=== PATIENT | male | born 1950 | race African-American/Black ===

== ENCOUNTER → 2019-12-07 | Outpatient (CLI) | payer MEDICARE ==
[2013-12-20 09:08] VITALS: BP 158/107
--- NOTE | 2019-12-07 10:00 | RAD ---
EXAM: Bilateral knees, standing view; cervical spine, 5 views. HISTORY: Pain. COMPARISON: 12/18/2018 FINDINGS: There are bilateral knees: A standing view both knees is obtained. There is severe right and moderate left medial compartment joint space narrowing with subchondral sclerosis. There is mild right greater than left medial compartment spurring. There is right greater than left genu varus. Cervical spine: 5 views of the cervical spine are obtained. There is mild anterolisthesis of C3 on C4 and C4 on C5. There is degenerative endplate remodeling and osteophytosis primarily at C5-C6 and C6-C7. There is multilevel facet arthropathy. No fracture is seen. IMPRESSION: 1. Multilevel degenerative change involving the cervical spine, primarily at C5-C6. 2. Severe right medial compartment and moderate left medial compartment osteoarthritis of both knees with associated right greater than left genu varus. Electronically signed by: Keira Zuniga MD (12/07/2019 9:57 AM) [id number]
== END ==
LOC: RAD 08:57
PROVIDERS: ATTEND Family Medicine
DX: M17.0 Bilateral primary osteoarthritis of knee (principal); M47.22 Other spondylosis with radiculopathy, cervical region; M21.162 Varus deformity, not elsewhere classified, left knee; M21.161 Varus deformity, not elsewhere classified, right knee
CPT/HCPCS: 72050; 73565